=== PATIENT | male | born 1980 | race Asian ===

== ENCOUNTER 2020-03-07 09:10 | Emergency (ER) | payer MEDICAID, OTHER ==
[~2020-03-07] VITALS: Ht 172.7 cm; Wt 83.0 kg
--- NOTE | 2020-03-07 09:24 | NUR ---
Dr. Wild at bedside for MSE
--- NOTE | 2020-03-07 09:37 | NUR ---
Patient discharged to home in stable condition & brisk steady gait. Written and verbal after care instructions given. Patient verbalizes understanding of instructions. Stressed follow up with his primary doctor and urologist or return to ER for worsening s/s.
== END 2020-03-07 09:38 | disposition home or self-care (01) ==
LOC: ER 09:10
DX: N48.33 Priapism, drug-induced (principal); T46.7X5A Adverse effect of peripheral vasodilators, initial encounter; Y92.89 Other specified places as the place of occurrence of the external cause; N52.9 Male erectile dysfunction, unspecified; R03.0 Elevated blood-pressure reading, without diagnosis of hypertension
CPT/HCPCS: A4663

== ENCOUNTER 2023-09-07 09:32 | Emergency (ER) | payer MEDICAID ==
[~2023-09-07] VITALS: Ht 177.8 cm; Wt 84.4 kg
[2023-09-07] MEDS ORDERED: MAGNESIUM SULFATE/D5W 200 ML ONE (09:56)
[2023-09-07] MEDS ORDERED: POTASSIUM BICARBONATE/CIT AC 25 MEQ TABLET.EFF ONE (09:56)
[2023-09-07] MEDS ORDERED: ASPIRIN 81 MG TAB.CHEW ONE (10:19)
[2023-09-07] MEDS ORDERED: DILTIAZEM HCL 25 MG IV ONE (10:20)
[2023-09-07] MEDS ORDERED: NITROGLYCERIN OINT 1 GM PACKET TP ONE (10:20)
[2023-09-07 10:21] LABS: BASOPHILS % (AUTO) 0.6 % (0.0-2.0); EOSINOPHILS # (AUTO) 0.2 K/uL (0.0-0.7); HEMATOCRIT 48.7 % (36.7-47.1); HEMOGLOBIN 17.1 g/dL (12.5-16.3); LYMPHOCYTES # (AUTO) 1.8 K/uL (0.8-4.8); LYMPHOCYTES % (AUTO) 35.7 % (20.5-51.5); MEAN CORPUSCULAR HGB CONC 35 g/dL (32.5-36.3); MEAN CORPUSCULAR VOLUME 88.2 fL (73.0-96.2); MONOCYTES # (AUTO) 0.4 K/uL (0.1-1.30); MONOCYTES % (AUTO) 7.9 % (0.0-11.0); NEUTROPHILS # (AUTO) 2.6 K/uL (1.8-8.9); NEUTROPHILS % (AUTO) 50.8 % (38.5-71.5); PLATELET COUNT (AUTO) 274 K/uL (152-348); RED BLOOD CELL COUNT(AUTO) 5.52 MIL/uL (4.06-5.63); RED CELL DISTRIBUTION WIDTH 13.2 % (12.1-16.2)
[2023-09-07] MEDS: ASPIRIN 81 MG TAB.CHEW PO ONE (10:34)
[2023-09-07] MEDS: DILTIAZEM HCL 25 MG IV IV ONE (10:34)
[2023-09-07] MEDS: POTASSIUM BICARBONATE/CIT AC 25 MEQ TABLET.EFF PO ONE (10:34)
[2023-09-07 10:35] VITALS: BP 128/94
[2023-09-07] MEDS: NITROGLYCERIN OINT 1 GM PACKET TP ONE (10:35)
[2023-09-07] MEDS: MAGNESIUM SULFATE/D5W 100 ML IV SCH (10:37)
[2023-09-07 10:43] LABS: CALCIUM 10.2 mg/dL (8.5-10.1); CREATININE 0.9 mg/dL (0.6-1.3); DIFFERENTIAL COMMENT 1; MAGNESIUM 2.2 mg/dL (1.8-2.4); POTASSIUM 5.1 mmol/L (3.5-5.1)
[2023-09-07 10:44] LABS: THYROID STIMULATING HORMONE 0.179 mIU/mL (0.358-3.740)
[2023-09-07] MEDS ORDERED: GEMF600T90 PO (11:35)
[2023-09-07] MEDS ORDERED: PROPOFOL 200 MG/20 ML BOTTLE ONE (12:14)
[2023-09-07] MEDS ORDERED: FENTANYL CITRATE 100 MCG/2 ML AMPUL ONE (12:15)
[2023-09-07] MEDS: FENTANYL CITRATE 100 MCG/2 ML AMPUL IV ONE (12:20)
[2023-09-07] MEDS: PROPOFOL 200 MG/20 ML BOTTLE IV ONE (12:24)
[2023-09-07 19:36] VITALS: O2SAT 99
== END 2023-09-07 21:36 | disposition short-term general hospital (02) ==
LOC: ER 09:32
DX: I24.9 Acute ischemic heart disease, unspecified (principal); I48.91 Unspecified atrial fibrillation; R73.9 Hyperglycemia, unspecified; F17.200 Nicotine dependence, unspecified, uncomplicated; Z79.899 Other long term (current) drug therapy; Z20.822 Contact with and (suspected) exposure to COVID-19
CPT/HCPCS: 99291; 92960; 96365; 71045; 96375; 87426; 80048; 83880; 83735; 84443; 85025; 85379; 84484; 36415; 96376; J3490; J3475; J3010; J7040; A4606; A4663